=== PATIENT | male | born 1985 | race Caucasian/White ===

== ENCOUNTER 2023-06-11 21:03 | Emergency (ER) | payer MEDICAID, OTHER ==
[~2023-06-11] VITALS: Ht 180.3 cm; Wt 77.1 kg
[2023-06-11 21:59] LABS: BASOPHILS % (AUTO) 1.5 % (0.0-2.0); EOSINOPHILS % (AUTO) 0.4 % (0.0-6.0); HEMATOCRIT 42 % (39-51); HEMOGLOBIN 14.2 g/dL (13.5-17.5); LYMPHOCYTES # (AUTO) 0.8 K/uL (0.8-4.8); LYMPHOCYTES % (AUTO) 30.4 % (20.0-44.0); MEAN CORPUSCULAR HEMOGLOBIN 30 PG (26.0-33.0); MEAN CORPUSCULAR HGB CONC 34 g/dl (31.0-36.0); MEAN CORPUSCULAR VOLUME 88 fL (80-96); MONOCYTES # (AUTO) 0.5 K/uL (0.1-1.30); MONOCYTES % (AUTO) 18.6 % (2.0-12.0); NEUTROPHILS # (AUTO) 1.4 K/uL (1.8-8.9); NEUTROPHILS % (AUTO) 49.1 % (43.0-81.0); PLATELET COUNT (AUTO) 166 K/uL (150-450); RED BLOOD CELL COUNT(AUTO) 4.78 MIL/uL (4.5-6.0); RED CELL DISTRIBUTION WIDTH 13.5 % (11.5-15.0); WHITE BLOOD COUNT (AUTO) 2.8 K/uL (4.3-11.0)
[2023-06-11 22:23] LABS: ALBUMIN 3.5 g/dL (3.4-5.0); BILIRUBIN,TOTAL 0.5 mg/dL (0.2-1.0); CALCIUM, SERUM 8.7 mg/dL (8.5-10.1); CREATININE 1.1 mg/dL (0.6-1.3); ERYTHROCYTE SEDIMENTATION RATE 6 MM/HR (0-15); POTASSIUM 3.8 mmol/L (3.5-5.1)
[2023-06-11 22:24] LABS: APPEARANCE,URINE CLEAR (CLEAR); BILIRUBIN,URINE NEGATIVE (NEGATIVE); BLOOD, URINE NEGATIVE Ery/uL (NEGATIVE); COLOR,URINE YELLOW (YELLOW); KETONES,URINE NEGATIVE (NEGATIVE); LEUKOCYTE ESTERASE ,URINE NEGATIVE (NEGATIVE); NITRITE, URINE NEGATIVE (NEGATIVE); PH,URINE 6.5 (5.0-8.0); PROTEIN,URINE NEGATIVE (NEGATIVE); UGLUCOSE NEGATIVE (NEGATIVE); UROBILINOGEN,URINE 0.2 EU/dL (0.2)
[2023-06-11 22:26] LABS: LACTIC ACID 0.9 mmol/L (0.4-2.0)
[2023-06-11] MEDS ORDERED: DIPH50CA4 PO (23:30)
[2023-06-11] MEDS ORDERED: CEPH500C2 PO (23:30)
[2023-06-11 23:37] LABS: BAND % (MANUAL) 3 % (0.0-5.0); EOSINOPHILS % (MANUAL) 1 % (0-4); LYMPHOCYTES % (MANUAL) 21 % (16-48); MONOCYTES % (MANUAL) 7 % (0-11.0); NEUTROPHILS % (MANUAL) 68 (42-76); PLATELET ESTIMATE ADEQUATE
[2023-06-11 23:49] VITALS: BP 131/76; TEMP 99.3; O2SAT 100
[2023-06-14 01:09] LABS: VARICELLA ZOSTER IgG <135 index (Immune >165)
[2023-06-14 05:10] LABS: RAPID PLASMA REAGIN QUAL. Non Reactive (Non Reactive)
== END 2023-06-11 23:50 | disposition home or self-care (01) ==
LOC: ER 21:09
DX: R21 Rash and other nonspecific skin eruption (principal)
CPT/HCPCS: 36415; 80053-TC; 83605-TC; 85025-TC; 85652-TC; 86592; 86593; 86787

== ENCOUNTER → 2023-10-06 | Emergency (ER) | payer MEDICAID ==
[~2023-10-06] VITALS: Ht 180.3 cm; Wt 76.7 kg
[~2023-10-06] MED LIST: AMOX875T2 PO; AMOXICILLIN TRIHYDRATE 250 MG CAPSULE ONE; CEPH500C2 PO; DIPH50CA4 PO; IBUPROFEN 600 MG TABLET ONE
[2023-10-06 19:12] VITALS: BP 117/58; TEMP 98.9
[2023-10-06] MEDS: AMOXICILLIN TRIHYDRATE 500 MG CAPSULE PO ONE (19:56)
[2023-10-06] MEDS: IBUPROFEN 600 MG TABLET PO ONE (19:57)
[2023-10-06 19:58] VITALS: O2SAT 99
== END | disposition home or self-care (01) ==
LOC: ER 19:04
DX: J02.9 Acute pharyngitis, unspecified (principal); R50.9 Fever, unspecified; Z60.2 Problems related to living alone

== ENCOUNTER → 2023-10-08 | Emergency (ER) | payer MEDICAID ==
[~2023-10-08] VITALS: Ht 180.3 cm; Wt 76.7 kg
[~2023-10-08] MED LIST changes: -AMOXICILLIN TRIHYDRATE 250 MG CAPSULE ONE; +IBUPROFEN 400 MG TABLET ONE; -IBUPROFEN 600 MG TABLET ONE; +dexaMETHasone SOD PHOSPHATE 1 ML ONE
[2023-10-08 15:03] VITALS: BP 114/65; TEMP 98.2; O2SAT 97
[2023-10-08] MEDS: dexaMETHasone SOD PHOSPHATE 4 MG/ML VIAL IM ONE (15:34)
[2023-10-08] MEDS: IBUPROFEN 400 MG TABLET PO ONE (15:34)
== END | disposition home or self-care (01) ==
LOC: ER 14:45
DX: J02.9 Acute pharyngitis, unspecified (principal); Z60.2 Problems related to living alone
CPT/HCPCS: 99283; 96372; J1100

== ENCOUNTER 2024-05-22 13:49 | Emergency (ER) | payer MEDICAID ==
[~2024-05-22] VITALS: Ht 180.3 cm; Wt 77.1 kg
[~2024-05-22 13:49] MED LIST changes: -IBUPROFEN 400 MG TABLET ONE; -dexaMETHasone SOD PHOSPHATE 1 ML ONE
[2024-05-22] MEDS ORDERED: KETOROLAC TROMETHAMINE 15 MG/ML VIAL ONE (14:29)
[2024-05-22] MEDS: KETOROLAC TROMETHAMINE 15 MG/ML VIAL IM ONE (14:32)
[2024-05-22 14:52] LABS: BASOPHILS % (AUTO) 0.3 % (0.0-2.0); EOSINOPHILS % (AUTO) 0.9 % (0.0-6.0); HEMATOCRIT 39 % (39-51); HEMOGLOBIN 12.9 g/dL (13.5-17.5); LYMPHOCYTES # (AUTO) 1.6 K/uL (0.8-4.8); LYMPHOCYTES % (AUTO) 35.3 % (20.0-44.0); MEAN CORPUSCULAR HEMOGLOBIN 30 PG (26.0-33.0); MEAN CORPUSCULAR HGB CONC 33 g/dl (31.0-36.0); MEAN CORPUSCULAR VOLUME 90 fL (80-96); MONOCYTES # (AUTO) 0.4 K/uL (0.1-1.30); MONOCYTES % (AUTO) 8.5 % (2.0-12.0); NEUTROPHILS # (AUTO) 2.5 K/uL (1.8-8.9); PLATELET COUNT (AUTO) 213 K/uL (150-450); RED BLOOD CELL COUNT(AUTO) 4.27 MIL/uL (4.5-6.0); RED CELL DISTRIBUTION WIDTH 13.6 % (11.5-15.0); WHITE BLOOD COUNT (AUTO) 4.5 K/uL (4.3-11.0)
[2024-05-22 15:02] LABS: CALCIUM, SERUM 8.8 mg/dL (8.5-10.1)
[2024-05-22 15:08] LABS: ALBUMIN 3.4 g/dL (3.4-5.0); BILIRUBIN,DIRECT 0.2 mg/dL (0.0-0.2); BILIRUBIN,TOTAL 0.5 mg/dL (0.2-1.0); TOTAL PROTEIN, SERUM 6.6 g/dL (6.4-8.2)
[2024-05-22 16:15] LABS: APPEARANCE,URINE CLEAR (CLEAR); BILIRUBIN,URINE NEGATIVE (NEGATIVE); BLOOD, URINE NEGATIVE Ery/uL (NEGATIVE); COLOR,URINE YELLOW (YELLOW); KETONES,URINE NEGATIVE (NEGATIVE); LEUKOCYTE ESTERASE ,URINE NEGATIVE (NEGATIVE); NITRITE, URINE NEGATIVE (NEGATIVE); PROTEIN,URINE NEGATIVE (NEGATIVE); UGLUCOSE NEGATIVE (NEGATIVE); UROBILINOGEN,URINE 0.2 EU/dL (0.2)
[2024-05-22 16:56] VITALS: BP 123/78; TEMP 98.6; O2SAT 100
== END 2024-05-22 16:56 | disposition home or self-care (01) ==
LOC: ER 13:53
DX: M79.18 Myalgia, other site (principal); R10.32 Left lower quadrant pain
CPT/HCPCS: 36415; 80048-TC; 80076-TC; 83690-TC; 85025-TC; J1885

== ENCOUNTER 2024-07-18 22:20 | Emergency (ER) | payer MEDICAID ==
[~2024-07-18] VITALS: Ht 180.3 cm; Wt 74.8 kg
[2024-07-18 23:14] VITALS: BP 105/71; TEMP 98.3
[2024-07-19] MEDS ORDERED: IBUP-1490 PO (00:22)
[2024-07-19 00:28] VITALS: O2SAT 98
== END 2024-07-19 00:32 | disposition home or self-care (01) ==
LOC: ER 22:30
DX: M79.641 Pain in right hand (principal); Z60.2 Problems related to living alone; Z79.899 Other long term (current) drug therapy
CPT/HCPCS: 73130-TC

== ENCOUNTER 2024-08-07 08:27 | Emergency (ER) | payer MEDICAID ==
[~2024-08-07] VITALS: Ht 180.3 cm; Wt 74.8 kg
[~2024-08-07 08:27] MED LIST changes: +IBUP-1490 PO
[2024-08-07 09:02] LABS: BASOPHILS % (AUTO) 0.3 % (0.0-2.0); EOSINOPHILS % (AUTO) 0.1 % (0.0-6.0); HEMATOCRIT 43 % (39-51); HEMOGLOBIN 14.7 g/dL (13.5-17.5); LYMPHOCYTES # (AUTO) 1.7 K/uL (0.8-4.8); LYMPHOCYTES % (AUTO) 15.5 % (20.0-44.0); MEAN CORPUSCULAR HEMOGLOBIN 30 PG (26.0-33.0); MEAN CORPUSCULAR HGB CONC 34 g/dl (31.0-36.0); MEAN CORPUSCULAR VOLUME 87 fL (80-96); NEUTROPHILS # (AUTO) 8.3 K/uL (1.8-8.9); NEUTROPHILS % (AUTO) 75.1 % (43.0-81.0); PLATELET COUNT (AUTO) 256 K/uL (150-450); RED BLOOD CELL COUNT(AUTO) 4.91 MIL/uL (4.5-6.0); RED CELL DISTRIBUTION WIDTH 13.8 % (11.5-15.0); WHITE BLOOD COUNT (AUTO) 11.1 K/uL (4.3-11.0)
[2024-08-07 09:10] LABS: CALCIUM, SERUM 9.2 mg/dL (8.5-10.1); POTASSIUM 3.8 mmol/L (3.5-5.1)
[2024-08-07 09:15] LABS: ALBUMIN 3.4 g/dL (3.4-5.0); BILIRUBIN,DIRECT 0.2 mg/dL (0.0-0.2); BILIRUBIN,TOTAL 0.7 mg/dL (0.2-1.0); TOTAL PROTEIN, SERUM 7.5 g/dL (6.4-8.2)
[2024-08-07] MEDS ORDERED: METR500T PO (10:41)
[2024-08-07] MEDS ORDERED: DICY10CA37 PO (10:41)
[2024-08-07] MEDS ORDERED: CIPR-262 PO (10:41)
[2024-08-07 10:53] VITALS: BP 106/73; TEMP 98.3; O2SAT 96
== END 2024-08-07 10:53 | disposition home or self-care (01) ==
LOC: ER 08:30
DX: R10.84 Generalized abdominal pain (principal); K52.9 Noninfective gastroenteritis and colitis, unspecified; Z60.2 Problems related to living alone; Z79.899 Other long term (current) drug therapy
CPT/HCPCS: 36415; 80048-TC; 80076-TC; 83690-TC; 85025-TC